=== PATIENT | female | born 1960 | race Asian ===

== ENCOUNTER 2023-11-28 23:29 | Emergency (ER) | payer OTHER ==
[~2023-11-28] VITALS: Ht 152.4 cm; Wt 63.5 kg
[2023-11-29 00:06] VITALS: BP_SYST 160; PULSE 77; RESP 18; TEMP 98.8; O2SAT 99
[2023-11-29] MEDS: ACETAMINOPHEN 500 MG TABLET PO ONE (02:33)
[2023-11-29] MEDS ORDERED: NITR-85 PO (03:23)
[2023-11-29 07:58] LABS: CLARITY/URINE CLEAR (CLEAR); COLOR,URINE YELLOW (YELLOW); PROTEIN URINE NEGATIVE (NEGATIVE)
[2023-11-29 07:59] LABS: BILIRUBIN,URINE NEGATIVE (NEGATIVE); BLOOD, URINE NEGATIVE (NEGATIVE); GLUCOSE,URINE NEGATIVE (NEGATIVE); KETONES,URINE NEGATIVE (NEGATIVE); LEUKOCYTE ESTERASE ,URINE TRACE (NEGATIVE)
[2023-11-29 08:00] LABS: NITRITE, URINE NEGATIVE (NEGATIVE); UROBILINOGEN,URINE 0.2 (0.2-1.0)
[2023-11-29 08:01] LABS: BACTERIA,URINE None Seen /HPF (None Seen); MUCUS,URINE None Seen /LPF (None Seen); RBC,URINE 0-3 /HPF (0-3)
== END 2023-11-29 03:40 | disposition home or self-care (01) ==
LOC: SED 23:29
DX: R60.0 Localized edema (principal); R39.198 Other difficulties with micturition; Z85.038 Personal history of other malignant neoplasm of large intestine
CPT/HCPCS: 81000; 81001; 81015; 93970; 99284